=== PATIENT | male | born 1995 | race African-American/Black ===

== ENCOUNTER 2017-10-09 18:08 | Emergency (ER) | payer OTHER ==
[~2017-10-09] VITALS: Ht 177.8 cm; Wt 90.7 kg
--- NOTE | ~2017-10-09 | EKG ---
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
[~2017-10-09 18:08] MED LIST: FLAGYL500 MG PO; IBUPROFEN 600600 M1 PO; NOHOMEMEDICATIONS; TIZANIDINE HCL4 MG PO; VICODIN 5-3001 EACH
[2017-10-09 18:33] LABS: BASOPHILS 0.7 % (0.0-2.0); EOSINOPHILS 0.5 % (0.0-3.0); HEMATOCRIT 43.2 % (42.0-52.0); HEMOGLOBIN 14.6 gm/dL (14.0-18.0); LYMPHOCYTES 18.5 % (24.0-44.0); MCH 30.7 pg (26.0-34.0); MCHC 33.8 g/dL (28.0-37.0); MCV 90.9 fL (80.0-100.0); MONOCYTES 5.6 % (1.0-8.0); PLATELET COUNT 217 thou/uL (150-400); POLYS 74.7 % (36.0-66.0); RBC 4.75 mil/uL (4.50-6.00); RDW 13.6 % (10.5-14.5); WBC 10.7 thou/uL (4.0-11.0)
[2017-10-09 18:42] LABS: ANION GAP 7 mmol/L (7-16); BUN 18 mg/dL (7-18); CALCIUM 9.1 mg/dL (8.5-10.1); CHLORIDE 104 mmol/L (98-107); CO2 28 mmol/L (21-32); GLUCOSE 98 mg/dL (74-106); POTASSIUM 3.9 mmol/L (3.5-5.1); SODIUM 139 mmol/L (136-145)
[2017-10-09 18:45] LABS: AMP/METHAMP Negative (Negative); BARBITURATES Negative (Negative); BENZODIAZEPINES Negative (Negative); COCAINE POSITIVE (Negative); METHADONE Negative (Negative); OPIATES Negative (Negative); PCP Negative (Negative)
[2017-10-09 18:50] LABS: TROPONIN-I < 0.04 ng/mL (<0.06)
[2017-10-09] MEDS ORDERED: NAPROSYN500 MG PO (19:30)
[2017-10-09] MEDS ORDERED: NORFLEX100 MG PO (19:30)
== END 2017-10-09 19:40 | disposition home or self-care (01) ==
LOC: ER 18:08
PROVIDERS: Nurse Practitioner Family
DX: S16.1XXA Strain of muscle, fascia and tendon at neck level, initial encounter (principal); R07.89 Other chest pain; R06.00 Dyspnea, unspecified; R82.5 Elevated urine levels of drugs, medicaments and biological substances; F17.210 Nicotine dependence, cigarettes, uncomplicated; X50.1XXA Overexertion from prolonged static or awkward postures, initial encounter; Y93.89 Activity, other specified; Y92.89 Other specified places as the place of occurrence of the external cause; Y99.8 Other external cause status

== ENCOUNTER 2018-04-30 11:54 | Emergency (ER) | payer OTHER ==
[~2018-04-30] VITALS: Ht 170.2 cm; Wt 113.4 kg
--- NOTE | ~2018-04-30 | EKG ---
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
[~2018-04-30 11:54] MED LIST changes: +NAPROSYN500 MG PO; +NORFLEX100 MG PO
[2018-04-30 13:07] LABS: AMP/METHAMP Negative (Negative); BARBITURATES Negative (Negative); BENZODIAZEPINES Negative (Negative); COCAINE Negative (Negative); METHADONE Negative (Negative); OPIATES Negative (Negative); PCP Negative (Negative)
[2018-04-30] MEDS ORDERED: NORFLEX100 MG PO (13:25)
[2018-04-30] MEDS ORDERED: NAPROSYN500 MG PO (13:25)
[2018-04-30 14:15] VITALS: BP 151/95
== END 2018-04-30 14:16 | disposition home or self-care (01) ==
LOC: ER 11:54
PROVIDERS: Emergency Medicine
DX: R07.89 Other chest pain (principal); M43.6 Torticollis; F17.210 Nicotine dependence, cigarettes, uncomplicated